=== PATIENT | male | born 1950 | race Hispanic/Latino ===

== ENCOUNTER 2019-01-03 05:43 | Day surgery (SDC) | payer MEDICARE ==
[~2019-01-03] VITALS: Ht 180.3 cm; Wt 74.8 kg
[2019-01-03] MEDS ORDERED: SODIUM CHLORIDE 0.9% 1000ML 1,000 ML IV ONE (06:02)
[2019-01-03 06:23] VITALS: BP 148/69
[2019-01-03] MEDS ORDERED: ICOS1CAP PO (07:16)
[2019-01-03] MEDS ORDERED: ASPI-555 PO (07:16)
[2019-01-03] MEDS ORDERED: FURO20TA4 PO (07:16)
[2019-01-03] MEDS ORDERED: PRAV40TA3 PO (07:16)
[2019-01-03] MEDS ORDERED: ALPR1TAB7 PO (07:16)
[2019-01-03] MEDS ORDERED: INSU100V37 SQ (07:16)
[2019-01-03] MEDS ORDERED: NEBI20TA2 PO (07:16)
[2019-01-03] MEDS ORDERED: CLOP75TA32 PO (07:16)
[2019-01-03] MEDS ORDERED: PREG75 PO (07:16)
[2019-01-03] MEDS ORDERED: LOSA100T58 PO (07:16)
[2019-01-03] MEDS ORDERED: FLUT8AER2 IH (07:16)
[2019-01-03] MEDS ORDERED: ALBU18HF7 IH (07:16)
[2019-01-03] MEDS ORDERED: DOXE6TAB3 PO (07:16)
[2019-01-03] MEDS ORDERED: GLYCOPYRROLATE 0.2 MG/ML 5 ML VIAL ONE (07:47)
[2019-01-03] MEDS ORDERED: LIDOCAINE HCL 1% 20 ML VIAL ONE (07:47)
[2019-01-03] MEDS ORDERED: PROPOFOL 10 MG/ML 20ML VIAL IV ONE ×2 (07:47→08:01)
[2019-01-03] MEDS ORDERED: EPHEDRINE SULFATE 50 MG/ML AMPULE ONE (08:00)
[2019-01-03] MEDS ORDERED: PHENYLEPHRINE HCL 10 MG/ML 1ML VIAL IV ONE (08:26)
[2019-01-03 08:34] VITALS: BP 117/60
[2019-01-03 08:39] VITALS: BP 103/56
[2019-01-03 08:44] VITALS: BP 110/58
[2019-01-03 08:49] VITALS: BP 111/51
== END 2019-01-03 09:05 | disposition home or self-care (01) ==
LOC: DAH 05:43 → ENDO 05:43
PROVIDERS: ATTEND Internal Medicine
DX: R19.7 Diarrhea, unspecified (principal); D12.0 Benign neoplasm of cecum; D12.4 Benign neoplasm of descending colon; D12.3 Benign neoplasm of transverse colon; D12.5 Benign neoplasm of sigmoid colon; D12.7 Benign neoplasm of rectosigmoid junction; K29.50 Unspecified chronic gastritis without bleeding; K25.9 Gastric ulcer, unspecified as acute or chronic, without hemorrhage or perforation; K22.8 Other specified diseases of esophagus; K26.9 Duodenal ulcer, unspecified as acute or chronic, without hemorrhage or perforation; K31.89 Other diseases of stomach and duodenum; J44.9 Chronic obstructive pulmonary disease, unspecified; E11.9 Type 2 diabetes mellitus without complications; E78.5 Hyperlipidemia, unspecified; I10 Essential (primary) hypertension; F41.9 Anxiety disorder, unspecified; F32.9 Major depressive disorder, single episode, unspecified; M19.90 Unspecified osteoarthritis, unspecified site; K58.9 Irritable bowel syndrome, unspecified; I25.10 Atherosclerotic heart disease of native coronary artery without angina pectoris; N40.0 Benign prostatic hyperplasia without lower urinary tract symptoms; Z95.5 Presence of coronary angioplasty implant and graft; Z79.4 Long term (current) use of insulin; Z79.899 Other long term (current) drug therapy; Z95.1 Presence of aortocoronary bypass graft; Z86.010 Personal history of colon polyps
CPT/HCPCS: 43239; 45380; 45385; 82948; 88305; 93005; A4606; J2370; J2704; J3490; J7030